=== PATIENT | male | born 1955 | race Caucasian/White ===

== ENCOUNTER → 2018-03-22 | Outpatient (CLI) | payer OTHER | LOC: BMCIMAGING 12:52 | PROVIDERS: ATTEND Internal Medicine | DX: R33.9 Retention of urine, unspecified (principal) ==

== ENCOUNTER 2018-04-05 08:39 | Inpatient (IN) | payer OTHER ==
--- NOTE | 2018-04-05 06:40 | PDHPUP ---
History & Physical Update H&P update statement: This history and physical update is based on an assessment of the patient which was completed after admission or registration (within 24 hours), but prior to the surgery/procedure. H&P update: H&P reviewed & patient examined, no change in patient's condition since H&P completed
[~2018-04-05 08:39] MED LIST: ROPIVACAINE 0.2% 80 MG, EPINEPHrine 0.2 MG, KETOROLAC TROMETHAMINE 30 MG in SYRINGE 0 ML IU ONE; TRANEXAMIC ACID 3,000 MG in NS (SYRINGE) 50 ML IRR ONE; TRANEXAMIC ACID 3,000 MG/50 ML BAG IRR ONE
[2018-04-05] MEDS ORDERED: MIDAZOLAM 2 MG/2 ML VIAL IVP ONE ×2 (09:15→10:07)
[2018-04-05] MEDS ORDERED: FAMOTIDINE 20 MG TAB PO ONE (09:19)
[2018-04-05] MEDS ORDERED: DEXAMETHASONE 4 MG/ML VIAL IVP ONE (09:19)
[2018-04-05] MEDS ORDERED: ACETAMINOPHEN 325 MG TAB PO ONE (09:19)
[2018-04-05] MEDS ORDERED: ceFAZolin 2 GM/DEXTROSE 100 ML IV ONE (09:19)
[2018-04-05] MEDS ORDERED: LIDOCAINE 1% 2 ML INJ ONE (09:34)
[2018-04-05] MEDS ORDERED: CEFAZOLIN 2 GM/DEXTROSE/100 ML BAG IV ONE (09:35)
[2018-04-05] MEDS ORDERED: LR 1,000 ML IV ONE (10:07)
--- NOTE | 2018-04-05 10:07 | PDANEPAE ---
ANE History of Present Illness here for L THANH ANE Past Medical History - Cardiovascular History Hx Hypertension: No Hx Arrhythmias: No Hx Chest Pain: Yes Hx Coronary Artery / Peripheral Vascular Disease: No Hx CHF / Valvular Disease: No Hx Palpitations: No Cardiovascular History Comment: Hx of chest pain 5 years ago without any diagnosis "wasn't my heart" - Pulmonary History Hx COPD: No Hx Asthma/Reactive Airway Disease: No Hx Recent Upper Respiratory Infection: No Hx Oxygen in Use at Home: No Hx Sleep Apnea: No Sleep Apnea Screening Result - Last Documented: Positive Pulmonary History Comment: KELLE triggers only - Neurologic History Hx Cerebrovascular Accident: No Hx Seizures: No Hx Dementia: No - Endocrine History Hx Diabetes: No - Renal History Hx Renal Disorders: No - Liver History Hx Hepatic Disorders: No - Neurological & Psychiatric Hx Hx Neurological and Psychiatric Disorders: No - Cancer History Hx Cancer: No - Congenital Disorder History Hx Congenital Disorders: No - GI History Hx Gastrointestinal Disorders: No - Other Health History Other Health History: wears glasses for reading. tinnitus. osteoarthritis - Chronic Pain History Chronic Pain: Yes (hip) - Surgical History Prior Surgeries: minor hand surgery. minor foot surgery ANE Review of Systems Review of Systems: - Exercise capacity METS (RN): 4 METS ANE Patient History - Allergies Allergies/Adverse Reactions: No Known Allergies Allergy (Verified 03/06/18 14:16) - Home Medications Home Medications: Aspirin [Aspirin 325 mg (*)] 650 mg PO DAILY PRN 03/05/18 [Last Taken 3 Weeks Ago ~03/15/18] Ibuprofen 400 04/05/18 [Last Taken 2 Months Ago ~02/03/18] celeCOXIB [Celebrex] 400 mg PO 04/05/18 [Last Taken 1 Day Ago ~04/04/18] - NPO status NPO Since - Liquids (Date): 04/05/18 NPO Since - Liquids (Time): 07:30 NPO Since - Solids (Date): 04/04/18 NPO Since - Solids (Time): 19:00 - Smoking Hx Smoking Status: Former smoker - Family Anes Hx Family Hx Anesthesia Complications: none ANE Labs/Vital Signs - Vital Signs Blood Pressure: 138/97 Heart Rate: 67 Respiratory Rate: 16 O2 Sat (%): 97 Height: 195.58 cm Weight: 90.718 kg ANE Physical Exam - Airway Neck exam: FROM Mallampati Score: Class 1 - Pulmonary Pulmonary: no respiratory distress - Cardiovascular Cardiovascular: regular rate and rhythym - ASA Status ASA Status: II ANE Anesthesia Plan Anesthesia Plan: MAC, spinal
[2018-04-05] MEDS ORDERED: PROPOFOL/EMULSION 500 MG/50 ML BOTTLE IV ONE ×2 (10:12→10:45)
[2018-04-05] MEDS: MIDAZOLAM 2 MG/2 ML VIAL IVP ONE ×2 (10:16→10:57)
[2018-04-05] MEDS ORDERED: fentaNYL 100 MCG/2 ML INJ ONE (10:36)
[2018-04-05] MEDS ORDERED: HYDROCODONE/APAP 5/325 TAB PO PRN (10:51)
[2018-04-05] MEDS ORDERED: ALBUTEROL 3 ML DEYVIAL IH PRN (10:51)
[2018-04-05] MEDS ORDERED: NALOXONE HCL 0.4 MG/ML INJ IVP PRN (10:51)
[2018-04-05] MEDS ORDERED: DEXAMETHASONE 4 MG/ML VIAL IVP PRN (10:51)
[2018-04-05] MEDS ORDERED: ONDANSETRON 4 MG/2 ML VIAL IVP PRN ×2 (10:51→11:46)
[2018-04-05] MEDS ORDERED: oxyCODONE IR 5 MG TAB PO PRN ×2 (10:51→11:46)
[2018-04-05] MEDS ORDERED: fentaNYL 100 MCG/2 ML INJ IVP PRN (10:51)
[2018-04-05] MEDS ORDERED: LR 500 ML IV PRN (10:51)
[2018-04-05] MEDS ORDERED: HYDROmorphONE/DILAUDID 2 MG/ML INJ IVP PRN (10:51)
[2018-04-05] MEDS ORDERED: PROPOFOL 200 MG/20 ML VIAL ONE (11:23)
[2018-04-05] MEDS ORDERED: PHENYLEPHRINE HCL 100 MCG/ML SYR ONE (11:25)
[2018-04-05] MEDS ORDERED: ePHEDrine SULFATE 25 MG/5 ML SYR ONE (11:25)
[2018-04-05] MEDS ORDERED: POLYETHYLENE GLYCOL 3350 17 GM PKT PO PRN (11:46)
[2018-04-05] MEDS ORDERED: PROMETHAZINE HCL 25 MG SUPPR PR PRN (11:46)
[2018-04-05] MEDS ORDERED: METOCLOPRAMIDE 10 MG/2 ML VIAL IVP PRN (11:46)
[2018-04-05] MEDS ORDERED: CYCLOBENZAPRINE 10 MG TAB PO PRN (11:46)
[2018-04-05] MEDS ORDERED: BISACODYL 10 MG SUPP PR PRN (11:46)
[2018-04-05] MEDS ORDERED: DIPHENOXYLATE/ATROPINE LOMOTIL 1 TAB PO PRN (11:46)
[2018-04-05] MEDS ORDERED: diphenhydrAMINE 25 MG CAP PO PRN (11:46)
[2018-04-05] MEDS ORDERED: MAGNESIUM HYDROXIDE 30 ML UDCUP PO PRN (11:46)
[2018-04-05] MEDS ORDERED: ONDANSETRON DISINTEGRATING 4 MG TAB PO PRN (11:46)
[2018-04-05] MEDS ORDERED: LACTULOSE 20 GM/30 ML UDCUP PO PRN (11:46)
[2018-04-05] MEDS ORDERED: PROMETHAZINE HCL 25 MG/ML INJ IVP PRN (11:46)
[2018-04-05] MEDS ORDERED: TEMAZEPAM 15 MG CAP PO PRN (11:46)
--- NOTE | 2018-04-05 11:46 | POSTOPPROG ---
Post Op Note Date of Operation: 04/05/18 Surgeon: Jennifer Mercedes Refrigeration Service Inspector: benito mercedes PA-C Anesthesiologist: dr. harden Anesthesia: Spinal Pre-op Diagnosis: left hip OA Post-op Diagnosis: same Indication: left hip pain Procedure: L THANH ant approach Findings: severe hip OA Inf/Abcess present in the surg proc area at time of surgery?: No EBL: 100-500
[2018-04-05] MEDS ORDERED: LR 1,000 ML IV SCH (12:00)
[2018-04-05] MEDS ORDERED: ACETAMINOPHEN 325 MG TAB ONE (12:42)
[2018-04-05] MEDS: ACETAMINOPHEN 325 MG TAB PO SCH ×3 (12:42→23:26)
--- NOTE | 2018-04-05 17:19 | PDMN ---
Medical Necessity Medical necessity: [facility] IP only surgery; cpt [id number] L THANH
[2018-04-05] MEDS: ceFAZolin 2 GM/DEXTROSE 100 ML IV SCH (17:32)
[2018-04-05] MEDS: ASPIRIN 81 MG CHEWABLE TAB PO SCH (20:43)
[2018-04-05] MEDS: FAMOTIDINE 20 MG TAB PO SCH (20:43)
[2018-04-05] MEDS: SENNOSIDES/DOCUSATE SODIUM TAB PO SCH (20:43)
[2018-04-06] MEDS: ceFAZolin 2 GM/DEXTROSE 100 ML IV SCH (03:09)
--- NOTE | 2018-04-06 04:43 | GOP ---
DATE OF OPERATION: 04/05/2018 SURGEON: Manoj Bah MD [employer] ASSISTANT: MELONY Dumont ANESTHESIA: Spinal. PREOPERATIVE DIAGNOSIS: Left hip osteoarthritis. POSTOPERATIVE DIAGNOSIS: Left hip osteoarthritis. PROCEDURE PERFORMED: Total hip arthroplasty with x-ray. FINDINGS: ESTIMATED BLOOD LOSS: 200 cc. INDICATIONS: The patient has progressively worsening arthritis of the hip which has failed medical m anagement. The patient understands the treatment options including continued nonoperative care and h as selected surgical intervention. The patient has decided to undergo total hip arthroplasty via the direct anterior approach, understanding the risks of the procedure including, but not limited to, ne urovascular injury, infection, persistent pain, component wear and loosening, deep venous thrombosis, pulmonary embolism, limb length inequality, hip instability (including dislocation), and intra-opera tive fractures. DESCRIPTION OF PROCEDURE: After proper identification of the patient including verification and lenny ing the surgical site, the patient was brought to the operating room and placed in the supine positio n. All bony prominences were well padded. Anesthesia was induced without complication and intraveno us prophylactic antibiotics were administered prior to skin incision. The operative leg was placed in the Trumpf Arch table extension and the well leg in a Yellofin leg ho lder. The patient was prepped and draped in the usual sterile fashion. The C-arm was draped for int raoperative fluoroscopy to check acetabular position, femoral component position including leg length and femoral offset. Attention was then drawn to surgical exposure of the hip. An incision was made with a #10 Bard Kayla r blade starting 3 cm lateral and 3 cm distal to the anterior superior iliac spine measuring 8-10 cm and coursing distally toward the greater trochanter. The skin and subcutaneous tissues were divided sharply down to the fascia carroll. The fascia carroll was incised in line with the skin incision exposing the underlying tensor fascia carroll muscle. The muscle was bluntly elevated from the fascia and the f irst extracapsular Cobra retractor was placed laterally at the junction of the superior femoral neck and greater trochanter. The lateral femoral circumflex vessels were identified, cauterized, and divi ded with the Aquamantys bipolar cautery. The deep investing fascia of the TFL was divided to allow p matthieu mobilization of the muscle preventing damage during the retraction. The reflected head of the rectus femoris muscle was elevated off the anterior hip capsule and a medial Cobra retractor was plac ed just proximal to the lesser trochanter. The anterior capsulotomy was made sharply from the superolateral acetabulum to the saddle junction of the superior femoral neck and greater trochanter, then coursing inferomedial towards the lesser troc hanter. The retractors were then placed in the intracapsular position for femoral neck osteotomy. C orresponding to preoperative templating, the osteotomy was made with the oscillating saw carefully pr otecting the greater trochanter and soft tissues. The femoral head was removed from the acetabulum w ith a corkscrew and confirmed to be severely arthritic with exposed bone, deformity and osteophytes. Similar findings were confirmed in the acetabulum. The Arch table extension was then placed in 40 d egrees external rotation. Attention was then drawn to the acetabular preparation. After placement of the anterior and posterio r Cobra retractors outside the labrum and intracapsular, the circumferential labrum was removed sharp ly. The foveal contents were then removed and hemostasis obtained with cautery. The first reamer selected was sized using the removed femoral head. Reaming began with medialization and then commenced in 2 mm increments at 45 degrees of abduction and 15 degrees of anteversion using fluoroscopic navigation. Reaming ceased 1 mm less than the definitive acetabular component and abdi esponded to the preoperative templating. The final acetabular component was inserted using fluorosco py to achieve proper orientation yielding excellent purchase and stability in the acetabulum. The fi nal acetabular liner was then placed and its seating confirmed. Attention was then turned to the femur. The Arch table extension was placed in extension and adducti on, delivering the osteotomized femoral neck into the wound. A 2-pronged femoral elevator was placed at the calcar and another at the tip of the greater trochanter. The posterolateral capsule was rele ased with cautery allowing mobilization of the femur lateral and anterior for preparation. The exter nal rotators were visualized and preserved. A curette and rongeur were used to open the starting poi nt for broaching. Serial broaching started with the #0 broach and ended with the broach that exhibit ed excellent fit in the proximal femur. A change in pitch during mallet strikes was accompanied by t he inability to advance the broach any further. The trial reduction was performed and fluoroscopic n avigation was utilized to check limb length. Adjustments were made to equalize limb length according ly. After the final trials were accepted they were removed and the wound was copiously lavaged. The femo ral component was seated to the same depth as the final broach and the femoral head was impacted onto the clean trunnion. The hip was then reduced for the final time and once more fluoroscopy was used to check that limb length equality was achieved. The wound was irrigated and closed in layers, the fascia carroll with 2-0 Quill, the subcutaneous tissue with 2-0 Quill, and the skin with Dermabond. Sterile dressings were applied. Final sharps and spon ge counts were accurate. The patient was then transferred to a hospital bed and brought to the [facility] room in stable condition. IMPLANTS: Accolade II size 6 at 127, acetabular component a 68 mm Trident II, liner is a Trident X3 36 mm, head is a Biolox Delta 36 mm -2.5. /[id number]/MODL
[2018-04-06] MEDS: ACETAMINOPHEN 325 MG TAB PO SCH (05:52)
[2018-04-06 07:36] VITALS: BP 114/67
[2018-04-06] MEDS: ASPIRIN 81 MG CHEWABLE TAB PO SCH (09:34)
[2018-04-06] MEDS: FAMOTIDINE 20 MG TAB PO SCH (09:34)
[2018-04-06] MEDS: SENNOSIDES/DOCUSATE SODIUM TAB PO SCH (09:34)
--- NOTE | 2018-04-06 11:44 | SOAPPROG ---
SOAP Progress Note Assessment/Plan: Assessment: Patient is doing well POD 1 s/p LTHA Pain management: pain is well controlled on oral pain meds. VTE ppx: recommend aspirin 81 mg BID for 4 weeks, cont LORENA and SCDs Anemia: level is expected initially postop. Asymptomatic. Continue to monitor D/c planning: d/c to home today pending release from PT Plan: 04/06/18 11:42 04/06/18 11:42 Subjective: patient is doing well, denies SOB, chest pain and N/V Objective: Vital Signs Temp Pulse Resp BP Pulse Ox 36.7 C 68 15 114/67 97 04/06/18 07:34 04/06/18 07:34 04/06/18 07:34 04/06/18 07:34 04/06/18 07:34 Laboratory Results 04/06/18 04:50 04/05/18 04/06/18 04/07/18 05:59 05:59 05:59 Intake Total 1630 Output Total 625 375 Balance 1005 -375 LLE: incision dressing is clean and dry, NVI, +pf/df ICD10 Worksheet Patient Problems: Problems Problem Status Onset Primary localized osteoarthritis of left hip Acute
== END 2018-04-06 11:59 | disposition home or self-care (01) | DRG 470 ==
LOC: F3N 08:39
PROVIDERS: ADMIT Orthopaedic Surgery; ATTEND Orthopaedic Surgery
PROC: 0SRB04Z Replacement of Left Hip Joint with Ceramic on Polyethylene Synthetic Substitute, Open Approach (ICD-10-PCS; principal; 2018-04-05 11:00)
DX: M16.12 Unilateral primary osteoarthritis, left hip (principal); G47.33 Obstructive sleep apnea (adult) (pediatric); Z87.891 Personal history of nicotine dependence
CPT/HCPCS: 97110-GP; 97116-GP; 97161-GP; 97530-GP; G8978-GP-CJ; G8979-GP-CI; G8980-GP-CI; J0171; J0690; J1100; J1885; J2250; J2370; J2704; J2795; J3010